=== PATIENT | female | born 1965 | race Caucasian/White ===

== ENCOUNTER → 2017-07-20 | Outpatient (CLI) | payer OTHER | LOC: COL.RAD 09:00 | DX: K76.89 Other specified diseases of liver (principal); N28.1 Cyst of kidney, acquired; K59.00 Constipation, unspecified; R13.10 Dysphagia, unspecified; R19.7 Diarrhea, unspecified; K63.5 Polyp of colon; Z80.0 Family history of malignant neoplasm of digestive organs; Z90.49 Acquired absence of other specified parts of digestive tract | CPT/HCPCS: A9585 ==

== ENCOUNTER → 2020-07-09 | Outpatient (CLI) | payer OTHER | LOC: MHCPAIN 10:10 | DX: M47.817 Spondylosis without myelopathy or radiculopathy, lumbosacral region (principal); M48.061 Spinal stenosis, lumbar region without neurogenic claudication; G89.29 Other chronic pain; M53.3 Sacrococcygeal disorders, not elsewhere classified; F17.210 Nicotine dependence, cigarettes, uncomplicated | CPT/HCPCS: G0463 ==

== ENCOUNTER 2020-08-11 10:15 | Outpatient (RCR) | payer OTHER | END 2020-08-26 15:33 | disposition home or self-care (01) | LOC: WSPT | DX: M54.5 Low back pain (principal) ==

== ENCOUNTER 2020-10-13 08:15 | Outpatient (RCR) | payer OTHER | END 2020-11-11 | disposition home or self-care (01) | LOC: WSPT | DX: M54.5 Low back pain (principal) ==